=== PATIENT | male | born 1990 | race African-American/Black ===

== ENCOUNTER 2022-01-26 19:20 | Emergency (ER) | payer MEDICAID ==
[~2022-01-26] VITALS: Ht 175.3 cm; Wt 115.7 kg
--- NOTE | 2022-01-26 19:35 | NUR ---
SOBEIDA C/O CP X 1 DAY WITH BURNETT. PATIENT IS AAOX4. CP CHARACTERIZED PRESSURE ON THE RIGHT SIDE WITH PS OF 6. VITALS CHECKED.
[2022-01-26] MEDS ORDERED: IBUPROFEN 400 MG TABLET PO ONE (20:00)
[2022-01-26] MEDS ORDERED: IBUPROFEN 400 MG TABLET ONE (20:01)
--- NOTE | 2022-01-26 20:47 | NUR ---
COVID SWAB DONE AND SENT TO LAB
--- NOTE | 2022-01-26 21:04 | NUR ---
NEEDS ATTENDED TO.
[2022-01-26] MEDS ORDERED: IBUP-1957 PO (22:05)
--- NOTE | 2022-01-26 22:17 | NUR ---
Patient discharged to home in stable condition. Written and verbal after care instructions given. Patient verbalizes understanding of instruction.
[2022-01-26 22:18] VITALS: BP 124/75
== END 2022-01-26 22:18 | disposition home or self-care (01) ==
LOC: ER 19:24
DX: B34.9 Viral infection, unspecified (principal); Z20.822 Contact with and (suspected) exposure to COVID-19; R07.81 Pleurodynia
CPT/HCPCS: 99284; 71045; 87426; C9803

== ENCOUNTER 2022-08-26 09:38 | Emergency (ER) | payer MEDICAID ==
[~2022-08-26] VITALS: Ht 175.3 cm; Wt 117.9 kg
[~2022-08-26 09:38] MED LIST: IBUP-1957 PO
[2022-08-26 09:48] VITALS: BP 134/84
--- NOTE | 2022-08-26 09:48 | NUR ---
BIB C/O HAVING FLU-LIKE SYMPTOMS; COUGH, CONGESTION, AND BODY ACHES X1 WEEK. PT IS AFEBRILE. VITALS WITHIN NORMAL LIMITS, NO RESPIRATORY DISTRESS NOTED. AWAITING MD COURTNEY.
--- NOTE | 2022-08-26 10:19 | NUR ---
RAPID COVID AND FLU COLLECTED AND SENT
--- NOTE | 2022-08-26 10:22 | NUR ---
CASE PACKER AT BEDSIDE FOR CHEST XRAY.
--- NOTE | 2022-08-26 11:39 | NUR ---
Patient discharged to home in stable condition. Written and verbal after care instructions given. Patient verbalizes understanding of instruction.
== END 2022-08-26 11:40 | disposition home or self-care (01) ==
LOC: ER 09:48
DX: J06.9 Acute upper respiratory infection, unspecified (principal); Z60.2 Problems related to living alone; Z79.899 Other long term (current) drug therapy; Z20.822 Contact with and (suspected) exposure to COVID-19
CPT/HCPCS: 99284; 71045; 87426; 87804 ×2; C9803

== ENCOUNTER 2024-01-17 19:47 | Emergency (ER) | payer MEDICAID ==
[~2024-01-17] VITALS: Ht 175.3 cm; Wt 106.6 kg
[2024-01-17 22:28] LABS: BASOPHILS # (AUTO) 0.1 K/uL (0.0-0.2); BASOPHILS % (AUTO) 0.9 % (0.0-2.0); EOSINOPHILS # (AUTO) 0.1 K/uL (0.0-0.7); EOSINOPHILS % (AUTO) 1.1 % (0.0-6.0); HEMATOCRIT 51 % (39-51); LYMPHOCYTES # (AUTO) 3.5 K/uL (0.8-4.8); MEAN CORPUSCULAR HEMOGLOBIN 29 PG (26.0-33.0); MEAN CORPUSCULAR HGB CONC 33 g/dl (31.0-36.0); MEAN CORPUSCULAR VOLUME 87 fL (80-96); MONOCYTES # (AUTO) 0.7 K/uL (0.1-1.30); MONOCYTES % (AUTO) 5.1 % (2.0-12.0); NEUTROPHILS # (AUTO) 8.4 K/uL (1.8-8.9); NEUTROPHILS % (AUTO) 65.9 % (43.0-81.0); PLATELET COUNT (AUTO) 354 K/uL (150-450); RED BLOOD CELL COUNT(AUTO) 5.85 MIL/uL (4.5-6.0); RED CELL DISTRIBUTION WIDTH 13.1 % (11.5-15.0); WHITE BLOOD COUNT (AUTO) 12.8 K/uL (4.3-11.0)
[2024-01-17 22:32] LABS: APPEARANCE,URINE CLEAR (CLEAR); BILIRUBIN,URINE 1+ (NEGATIVE); BLOOD, URINE TRACE-INTA Ery/uL (NEGATIVE); COLOR,URINE YELLOW (YELLOW); KETONES,URINE NEGATIVE (NEGATIVE); LEUKOCYTE ESTERASE ,URINE NEGATIVE (NEGATIVE); NITRITE, URINE NEGATIVE (NEGATIVE); PROTEIN,URINE 1+ mg/dl (NEGATIVE); UGLUCOSE NEGATIVE (NEGATIVE)
[2024-01-17] MEDS ORDERED: ONDANSETRON 4 MG TAB.RAPDIS ONE (22:36)
[2024-01-17] MEDS ORDERED: FAMOTIDINE (20 MG) 20 MG TABLET ONE (22:36)
[2024-01-17] MEDS ORDERED: ACETAMINOPHEN ES 500 MG TABLET ONE (22:36)
[2024-01-17] MEDS ORDERED: MAG HYDROX/AL HYDROX/SIMETH 30 ML UDC ONE (22:36)
[2024-01-17 22:38] LABS: ALBUMIN 4.2 g/dL (3.4-5.0); CALCIUM, SERUM 9.8 mg/dL (8.5-10.1); CREATININE 1.1 mg/dL (0.6-1.3); POTASSIUM 4.3 mmol/L (3.5-5.1)
[2024-01-17] MEDS: MAG HYDROX/AL HYDROX/SIMETH 30 ML UDC PO ONE (22:42)
[2024-01-17] MEDS: ACETAMINOPHEN ES 500 MG TABLET PO ONE (22:42)
[2024-01-17] MEDS: ONDANSETRON 4 MG TAB.RAPDIS PO ONE (22:42)
[2024-01-17] MEDS: FAMOTIDINE (20 MG) 20 MG TABLET PO ONE (22:42)
[2024-01-17 22:44] LABS: ADD URINE CULTURE NO; BACTERIA,URINE Rare /HPF (None Seen); SQUAMOUS EPITHELIAL CELL,UR Rare /HPF (None Seen); WBC,URINE 0-2 /HPF (0-3)
[2024-01-17 23:15] LABS: BILIRUBIN,TOTAL 1.5 mg/dL (0.2-1.0)
[2024-01-17 23:16] LABS: BILIRUBIN,DIRECT 0.3 mg/dL (0.0-0.2)
[2024-01-17] MEDS ORDERED: FAMO20TA80 PO (23:29)
[2024-01-17] MEDS ORDERED: ACET-2605 PO (23:29)
[2024-01-17] MEDS ORDERED: ONDA4TAB5 PO (23:29)
[2024-01-18 00:02] VITALS: BP 129/88; TEMP 98.4; O2SAT 98
== END 2024-01-18 00:03 | disposition home or self-care (01) ==
LOC: ER 19:50
DX: R10.84 Generalized abdominal pain (principal); R11.0 Nausea; Z79.1 Long term (current) use of non-steroidal anti-inflammatories (NSAID); Z60.2 Problems related to living alone
CPT/HCPCS: 99284; 85025; 80048; 83690; 80076; 81001; 36415; Q0162